=== PATIENT | male | born 1955 | race Caucasian/White ===

== ENCOUNTER 2020-09-12 22:47 | Inpatient (IN) | payer MEDICARE, OTHER ==
[~2020-09-12] VITALS: Ht 177.8 cm; Wt 81.6 kg
[2020-09-12] MEDS: IV NORMAL SALINE 500 ML BAG IV ONE ×2 (00:55→23:55)
--- NOTE | 2020-09-12 22:50 | NUR ---
at bedside for MSE. RN at bedside for EKG
[2020-09-12] MEDS ORDERED: NITROGLYCERIN 0.4 MG/TAB BOTTLE SL ONE ×2 (23:00→23:07)
[2020-09-12] MEDS ORDERED: NITROGLYCERIN OINT 1 GM PACKET TP ONE ×2 (23:00→23:07)
[2020-09-12] MEDS ORDERED: ASPIRIN 81 MG TAB.CHEW PO ONE (23:00)
[2020-09-12] MEDS ORDERED: ASPIRIN 81 MG TAB.CHEW ONE (23:07)
[2020-09-12 23:15] LABS: BASOPHILS # (AUTO) 0.1 K/uL (0.0-8.0); BASOPHILS % (AUTO) 0.7 % (0.0-2.0); EOSINOPHILS # (AUTO) 0.4 K/uL (0.0-0.7); EOSINOPHILS % (AUTO) 4.4 % (0.0-7.0); HEMATOCRIT 45.1 % (36.7-47.1); HEMOGLOBIN 15.3 g/dL (12.5-16.3); LYMPHOCYTES # (AUTO) 2.8 K/uL (20.0-40.0); LYMPHOCYTES % (AUTO) 28.3 % (20.5-51.5); MEAN CORPUSCULAR HEMOGLOBIN 30.4 uug (23.8-33.4); MEAN CORPUSCULAR HGB CONC 34 g/dL (32.5-36.3); MEAN CORPUSCULAR VOLUME 89.9 fL (73.0-96.2); MONOCYTES # (AUTO) 0.7 K/uL (2.0-10.0); MONOCYTES % (AUTO) 7.1 % (0.0-11.0); NEUTROPHILS # (AUTO) 5.8 K/uL (1.8-8.9); NEUTROPHILS % (AUTO) 59.5 % (38.5-71.5); PLATELET COUNT (AUTO) 226 K/uL (152-348); RED BLOOD CELL COUNT(AUTO) 5.02 MIL/uL (4.06-5.63); WHITE BLOOD COUNT (AUTO) 9.7 K/uL (3.6-10.2)
[2020-09-12 23:26] LABS: BILIRUBIN,DIRECT 0.1 mg/dL (0.0-0.2); BILIRUBIN,TOTAL 0.4 mg/dL (0.2-1.0); CREATININE 1.4 mg/dL (0.6-1.3); POTASSIUM 3.8 mmol/L (3.5-5.1); TOTAL PROTEIN, SERUM 7.9 g/dL (6.4-8.2)
[2020-09-12] MEDS ORDERED: SEMA0.25 SQ (23:27)
[2020-09-12] MEDS ORDERED: LISI40TA13 PO (23:27)
[2020-09-12] MEDS ORDERED: SITA100T PO (23:27)
[2020-09-12] MEDS ORDERED: METF-886 PO (23:27)
[2020-09-12] MEDS ORDERED: ALLO300T2 PO (23:27)
[2020-09-12] MEDS ORDERED: ATOR20TA PO (23:27)
--- NOTE | 2020-09-12 23:27 | NUR ---
Pt unable to recall some medications, states takes 2 insulin pens, and insulin sliding scale, but unable to remember name. Also takes 8 pill type medications, unable to remember depression medication. Needs follow up.
[2020-09-12] MEDS ORDERED: MORPHINE SULFATE 4 MG/1 ML DISP.SYRIN IV ONE (23:30)
[2020-09-12] MEDS ORDERED: ONDANSETRON 4 MG/2 ML VIAL IV ONE (23:30)
[2020-09-12] MEDS ORDERED: MORPHINE SULFATE 4 MG/1 ML DISP.SYRIN ONE (23:38)
[2020-09-12] MEDS ORDERED: MORPHINE SULFATE 2 MG/1 ML DISP.SYRIN ONE (23:39)
[2020-09-12] MEDS ORDERED: ONDANSETRON 4 MG/2 ML VIAL ONE (23:39)
[2020-09-12] MEDS ORDERED: IOHEXOL 350 100 ML INFUS..BTL ONE (23:57)
[2020-09-12] MEDS ORDERED: SWABABLE VALVE TRANSFER SET EA MC ONE (23:57)
[2020-09-12] MEDS ORDERED: IV NORMAL SALINE 250 ML IV ONE (23:58)
[2020-09-13] MEDS ORDERED: INSULIN REGULAR, HUMAN 300 UNIT/3 ML VIAL IV ONE
--- NOTE | 2020-09-13 00:10 | NUR ---
Patient placed on O2 2LPM, noted with desaturation to 90-91% when talking or during exertion. O2 sat: 96-98% with 2LPM of O2 via NC.
[2020-09-13] MEDS ORDERED: POTASSIUM CHLORIDE 20 MEQ TAB.PRT.SR ONE (00:13)
[2020-09-13] MEDS ORDERED: INSULIN REGULAR, HUMAN 300 UNIT/3 ML VIAL ONE (00:14)
[2020-09-13] MEDS ORDERED: POTASSIUM CHLORIDE 20 MEQ TAB.PRT.SR PO ONE (00:15)
--- NOTE | 2020-09-13 00:30 | NUR ---
Patient went down to CT in stable condition.
--- NOTE | 2020-09-13 00:45 | NUR ---
Pt back from CT, VS rechecked, normal as recorded, kept on O2.
--- NOTE | 2020-09-13 01:00 | NUR ---
Received patient in shift report
[2020-09-13] MEDS ORDERED: CEFTRIAXONE 1 G in IV DEXTROSE 5% 50 ML IV ONE (02:15)
[2020-09-13] MEDS ORDERED: MORPHINE SULFATE 4 MG/1 ML DISP.SYRIN IV ONE (02:15)
[2020-09-13] MEDS ORDERED: FLUCONAZOLE 100 MG TABLET PO ONE (02:15)
[2020-09-13] MEDS ORDERED: MORPHINE SULFATE 2 MG/1 ML DISP.SYRIN ONE (02:15)
[2020-09-13] MEDS ORDERED: CEFTRIAXONE /D5W 50ML IVPB **ER PYXIS IV ONE (02:15)
[2020-09-13] MEDS ORDERED: FLUCONAZOLE 100 MG TABLET ONE (02:39)
--- NOTE | 2020-09-13 02:49 | NUR ---
Report given to to Yina HERNANDEZ
[2020-09-13] MEDS ORDERED: ACETAMINOPHEN 325 MG TABLET PO PRN (03:30)
[2020-09-13] MEDS ORDERED: ONDANSETRON 4 MG/2 ML VIAL IV PRN (03:30)
[2020-09-13] MEDS ORDERED: HYDROCODONE/APAP 5-325MG TABLET PO PRN (03:30)
[2020-09-13] MEDS ORDERED: Z GUARD REMEDY PASTE 57 GM TUBE TOP PRN (03:30)
[2020-09-13] MEDS ORDERED: MAGNESIUM HYDROXIDE 30 ML LIQUID UDC PO PRN (03:30)
--- NOTE | 2020-09-13 04:00 | NUR ---
Pt. admitted to Tele , under care of Dr. Castro, room 314 Belongs List completed and all belongings sent
[2020-09-13 05:01] VITALS: BP 106/55
--- NOTE | 2020-09-13 06:14 | NUR ---
Admitted patient to room 314; SR on tele; VSS; denies any pain; admission procedure done; needs attended; plan of care initiated;
[2020-09-13 07:04] LABS: BASOPHILS # (AUTO) 0.1 K/uL (0.0-8.0); BASOPHILS % (AUTO) 0.6 % (0.0-2.0); EOSINOPHILS # (AUTO) 0.5 K/uL (0.0-0.7); EOSINOPHILS % (AUTO) 4.8 % (0.0-7.0); HEMATOCRIT 43.9 % (36.7-47.1); HEMOGLOBIN 14.6 g/dL (12.5-16.3); LYMPHOCYTES # (AUTO) 2.9 K/uL (20.0-40.0); LYMPHOCYTES % (AUTO) 28.8 % (20.5-51.5); MEAN CORPUSCULAR HEMOGLOBIN 30.1 uug (23.8-33.4); MEAN CORPUSCULAR HGB CONC 33 g/dL (32.5-36.3); MEAN CORPUSCULAR VOLUME 90.4 fL (73.0-96.2); MONOCYTES # (AUTO) 0.9 K/uL (2.0-10.0); NEUTROPHILS # (AUTO) 5.8 K/uL (1.8-8.9); NEUTROPHILS % (AUTO) 56.8 % (38.5-71.5); PLATELET COUNT (AUTO) 213 K/uL (152-348); RED BLOOD CELL COUNT(AUTO) 4.85 MIL/uL (4.06-5.63); WHITE BLOOD COUNT (AUTO) 10.1 K/uL (3.6-10.2)
--- NOTE | 2020-09-13 07:40 | NUR ---
Received in bed awake, alert and conversant. No respiratory distress. Denies chest pain or sob. On 2Lpm via nc spo2 98%. Kept comfortable. Safety measures maintainted. Will continue to monitor.
[2020-09-13 07:42] LABS: *BILIRUBIN,URIN NEGATIVE (NEGATIVE); *BLOOD, URINE NEGATIVE (NEGATIVE); *CLARITY,URINE CLEAR (CLEAR); *COLOR,URINE YELLOW (YELLOW); *KETONES,URINE NEGATIVE (NEGATIVE); *UROBILINOGEN,URINE 0.2 E.U./dl (NORMAL); LEUKOCYTE ESTERASE ,URINE NEGATIVE (NEGATIVE); NITRITE, URINE NEGATIVE (NEGATIVE); UGLUCOSE NEGATIVE (NEGATIVE)
[2020-09-13 08:00] VITALS: BP 110/59
[2020-09-13] MEDS ORDERED: METFORMIN XR 500 MG TAB.SR.24H PO SCH (08:00)
[2020-09-13 08:36] LABS: MAGNESIUM 1.9 mg/dL (1.8-2.4); PHOSPHOROUS 4.7 mg/dL (2.5-4.9); POTASSIUM 4.3 mmol/L (3.5-5.1)
[2020-09-13] MEDS ORDERED: LISINOPRIL 20 MG TABLET PO SCH (09:00)
[2020-09-13] MEDS ORDERED: ALLOPURINOL 300 MG TABLET PO SCH (09:00)
[2020-09-13] MEDS ORDERED: LINAGLIPTIN 5 MG TABLET PO SCH (09:00)
--- NOTE | 2020-09-13 09:00 | NUR ---
C/o of mild headache. Prn Tylenol given as ordered at 820am. Patient verbalized relief.
--- NOTE | 2020-09-13 11:05 | NUR ---
patient refused troponin lab draw said he said they ben so many times already last night. will continue to monitor and encourage. charge nurse aware.
[2020-09-13] MEDS ORDERED: DEXTROSE 50% 50 ML DISP.SYRIN IV PRN (11:45)
[2020-09-13] MEDS ORDERED: BLOOD SUGAR DIAGNOSTIC 1 EACH STRIP VI SCH (11:45)
[2020-09-13] MEDS ORDERED: INSULIN REGULAR, HUMAN 300 UNIT/3 ML VIAL SQ PRN (11:45)
[2020-09-13 11:49] VITALS: BP 128/77
[2020-09-13] MEDS ORDERED: SUCRALFATE 1 G TABLET PO SCH (13:15)
--- NOTE | 2020-09-13 13:16 | NUR ---
Seen and examined by Dr. Vargas with order for carafate1 gm po achs noted and carried out. Patient is aware.
[2020-09-13] MEDS ORDERED: SUCR1TAB31 PO (13:34)
[2020-09-13] MEDS ORDERED: ESOM40CA PO (13:34)
--- NOTE | 2020-09-13 15:12 | NUR ---
Patient is discharged to home. Alert and oriented x4, anxious to go home. In no acute distress. Due meds given and tolerated. No nausea or vomiting. Denies sob or chest pain. Belongings inventoried and confirmed he has all of it. Education given on new medications. He verbalized understanding. Seen by Dr. Vargas today and answered all his questions. Removed Iv no bleeding noted. Patient is stable and arranged for his own uber with a friend. Brought downstairs via wheelchair. MD is aware.
[2020-09-13] MEDS ORDERED: ATORVASTATIN 20 MG TABLET PO SCH (18:00)
== END 2020-09-13 15:05 | disposition home or self-care (01) | DRG 391 ==
LOC: ER 22:49 → TELE3 09-13 03:42
PROVIDERS: ADMIT Internal Medicine; ATTEND Internal Medicine
DX: K20.90 Esophagitis, unspecified without bleeding (principal); N17.0 Acute kidney failure with tubular necrosis; E03.9 Hypothyroidism, unspecified; E78.5 Hyperlipidemia, unspecified; G89.29 Other chronic pain; I25.10 Atherosclerotic heart disease of native coronary artery without angina pectoris; R29.6 Repeated falls; Z20.822 Contact with and (suspected) exposure to COVID-19; Z86.73 Personal history of transient ischemic attack (TIA), and cerebral infarction without residual deficits; J44.9 Chronic obstructive pulmonary disease, unspecified; E11.51 Type 2 diabetes mellitus with diabetic peripheral angiopathy without gangrene; F17.210 Nicotine dependence, cigarettes, uncomplicated; M19.90 Unspecified osteoarthritis, unspecified site; B35.3 Tinea pedis; F32.9 Major depressive disorder, single episode, unspecified; F41.9 Anxiety disorder, unspecified; Z71.6 Tobacco abuse counseling; E11.42 Type 2 diabetes mellitus with diabetic polyneuropathy; Z85.51 Personal history of malignant neoplasm of bladder; I11.9 Hypertensive heart disease without heart failure; R93.1 Abnormal findings on diagnostic imaging of heart and coronary circulation; R94.31 Abnormal electrocardiogram [ECG] [EKG]; Z79.84 Long term (current) use of oral hypoglycemic drugs
CPT/HCPCS: 36415; 70030-TC; 71045; 71275; 83735; 84100; 84153; 84443; 85025; 85730; 93005; 93307; G0378; J0696; J1815; J2270; J2405; J7050; Q9967

== ENCOUNTER 2021-12-05 14:39 | Emergency (ER) | payer MEDICARE, OTHER ==
[~2021-12-05] VITALS: Ht 180.3 cm; Wt 81.6 kg
[~2021-12-05 14:39] MED LIST: ALLO300T2 PO; ATOR20TA PO; ESOM40CA PO; LISI40TA13 PO; METF-886 PO; SEMA0.25 SQ; SITA100T PO; SUCR1TAB31 PO
--- NOTE | 2021-12-05 14:39 | NUR ---
Per [facility] paramedics, "This is a known abrasive person c/o throat discomfort, abdominal pains with shortness of breath." Patient is AOx4, intermittently mute when triage/dry charge process attendant Andrei is asking questions regarding his emergency health needs, his respiration is easy but mildly tachypneac, skin is warm and dry.
--- NOTE | 2021-12-05 15:02 | NUR ---
Patient is resting comfortably on gurney while using his personal electronic device, still c/o chronic throat discomfort, upper abdominal bloating with shortness of breath, hx of chronic esophagitis, Parkinson's, still currently using 1 pack cigarrette, COPD, HTN, DM, PAD, CAD, CHF, cervical spinal issues s/p 2 surgeries, bladder cancer s/p laser surgery, osteoarthritis, gout, vasomotor nephropathy, ANXIETY, depression, CVA/TIA with balance issues, uses cane to ambulate, and chronic pains
[2021-12-05] MEDS ORDERED: SERT-440 PO (15:14)
[2021-12-05] MEDS ORDERED: POLY17PO4 PO (15:14)
[2021-12-05] MEDS ORDERED: INSU100V7 SQ (15:14)
[2021-12-05] MEDS ORDERED: CARB1TAB21 PO (15:14)
[2021-12-05] MEDS ORDERED: LISI10TA29 PO (15:14)
[2021-12-05] MEDS ORDERED: ROSU40TA PO (15:14)
[2021-12-05] MEDS ORDERED: OMEP40CA21 PO (15:14)
[2021-12-05] MEDS ORDERED: ERGO500040 PO (15:14)
[2021-12-05] MEDS ORDERED: APIX5TAB4 PO (15:14)
[2021-12-05] MEDS ORDERED: METO-356 PO (15:14)
[2021-12-05] MEDS ORDERED: LORA-259 PO (15:14)
[2021-12-05 15:25] LABS: HEMATOCRIT 34.1 % (36.7-47.1); MEAN CORPUSCULAR VOLUME 86.8 fL (73.0-96.2); PLATELET COUNT (AUTO) 255 K/uL (152-348)
[2021-12-05 15:34] LABS: ETHANOL < 3 MG/DL (0-0)
--- NOTE | 2021-12-05 15:36 | NUR ---
NPO observed 2/2 patient's active complaints of throat discomfort and difficulty swallowing. Comfort and safety measures maintained.
[2021-12-05] MEDS ORDERED: ALBUTEROL SULFATE 2.5 MG/3 ML NEBU ONE (15:51)
[2021-12-05 15:59] LABS: CARBON DIOXIDE 25 mmol/L (21-32); CHLORIDE 105 mmol/L (98-107); CREATININE 0.9 mg/dL (0.6-1.3); GLUCOSE 92 mg/dL (74-106); POTASSIUM 3.9 mmol/L (3.5-5.1); UREA NITROGEN, BLOOD 11 mg/dL (7-18)
[2021-12-05] MEDS ORDERED: ALBUTEROL SULFATE 2.5 MG/3 ML NEBU NEB ONE (16:00)
[2021-12-05 16:08] LABS: ALANINE AMINOTRANSFERASE 12 U/L (16-63); ALKALINE PHOSPHATASE 104 U/L (50-136); ASPARTATE AMINOTRANSFERASE 15 U/L (15-37); BILIRUBIN,DIRECT 0.2 mg/dL (0.0-0.2); BILIRUBIN,TOTAL 0.6 mg/dL (0.2-1.0); CREATINE KINASE, TOTAL 64 U/L (39-308); TOTAL PROTEIN, SERUM 7.2 g/dL (6.4-8.2)
[2021-12-05 16:09] LABS: ACETAMINOPHEN < 10.0 ug/mL (10-30)
[2021-12-05] MEDS ORDERED: diphenhydrAMINE 50 MG/1 ML VIAL IV ONE (16:15)
[2021-12-05] MEDS ORDERED: HALOPERIDOL LACTATE 5 MG/1 ML VIAL IV ONE (16:15)
[2021-12-05] MEDS ORDERED: FUROSEMIDE 40 MG/4 ML VIAL IV ONE (16:15)
[2021-12-05] MEDS ORDERED: FUROSEMIDE 40 MG/4 ML VIAL ONE (16:18)
[2021-12-05] MEDS ORDERED: diphenhydrAMINE 50 MG/1 ML VIAL ONE (16:18)
[2021-12-05] MEDS ORDERED: HALOPERIDOL LACTATE 5 MG/1 ML VIAL ONE (16:18)
[2021-12-05 16:26] LABS: *BILIRUBIN,URIN NEGATIVE (NEGATIVE); *BLOOD, URINE NEGATIVE (NEGATIVE); *CLARITY,URINE CLEAR (CLEAR); *COLOR,URINE YELLOW (YELLOW); *KETONES,URINE NEGATIVE (NEGATIVE); *UROBILINOGEN,URINE 0.2 E.U./dl (NORMAL); LEUKOCYTE ESTERASE ,URINE NEGATIVE (NEGATIVE); NITRITE, URINE NEGATIVE (NEGATIVE); PH,URINE 5.5 (5.0-8.0); UGLUCOSE NEGATIVE (NEGATIVE)
[2021-12-05] MEDS ORDERED: LORAZEPAM 1 MG TABLET PO PRN (16:30)
[2021-12-05] MEDS ORDERED: INSULIN REGULAR, HUMAN 300 UNIT/3 ML VIAL SQ PRN (16:30)
[2021-12-05] MEDS ORDERED: INSULIN REGULAR, HUMAN 300 UNITS/3 ML VIAL SQ PRN (16:30)
[2021-12-05] MEDS ORDERED: ONDANSETRON 4 MG/2 ML VIAL IV PRN (16:30)
[2021-12-05] MEDS ORDERED: ACETAMINOPHEN 325 MG TABLET PO PRN (16:30)
[2021-12-05] MEDS ORDERED: BLOOD SUGAR DIAGNOSTIC 1 EACH STRIP VI SCH (16:30)
[2021-12-05] MEDS ORDERED: DEXTROSE 50% 50 ML DISP.SYRIN IV PRN (16:30)
--- NOTE | 2021-12-05 16:35 | NUR ---
Patient was frequently reminded not to scream and that he is not the only patient in ER room 2. Patient was heard saying "I want to go to [facility]." is aware.
[2021-12-05 16:44] LABS: *AMPHETAMINE, URINE NEGATIVE (NEGATIVE); *CANNABINOID, URINE NEGATIVE (NEGATIVE); *COCCAINE, URINE NEGATIVE (NEGATIVE); *OPIATE, URINE NEGATIVE (NEGATIVE); *PHENCYCLIDINE SCREEN,URINE NEGATIVE (NEGATIVE)
[2021-12-05] MEDS ORDERED: Medication Not On Formulary EA (Apixaban (Eliquis) 5 MG) PO SCH (17:00)
[2021-12-05] MEDS ORDERED: METOPROLOL SUCCINATE XL 25 MG TAB.SR.24H PO SCH (17:00)
[2021-12-05] MEDS ORDERED: CARBIDOPA/LEVODOPA 25-100MG TABLET PO SCH (17:00)
[2021-12-05] MEDS ORDERED: APIXABAN 5 MG TABLET PO ONE (18:00)
[2021-12-05] MEDS ORDERED: CEFTRIAXONE 1 G in IV DEXTROSE 5% 50 ML IV SCH (18:15)
[2021-12-05] MEDS ORDERED: FLUTICASONE/VILANTEROL 1 EACH BLST.W.DEV INH SCH (18:15)
[2021-12-05] MEDS ORDERED: ALBUTEROL SULFATE 2.5 MG/3 ML NEBU NEB PRN (18:15)
[2021-12-05] MEDS ORDERED: AZITHROMYCIN IV 500 MG in IV DEXTROSE 5% 250 ML IV SCH (18:15)
[2021-12-05 18:42] LABS: FERRITIN 97 ng/mL (26-388); LACTATE DEHYDROGENASE 186 U/L (85-227)
--- NOTE | 2021-12-05 18:56 | NUR ---
Patient is resting comfortably on gurney with eyes closed, laying on his right side, respiration:easy, urinal at bedside. Patient said that he feels better and wants to sleep and rest more.
--- NOTE | 2021-12-05 19:21 | NUR ---
Nursing SBAR given to 7pm nurse Armendariz. Patient verbally refused admission earlier but may consent now. Patient is now waiting for an available telemetry bed and nurse.
[2021-12-05] MEDS ORDERED: INSULIN GLARGINE,HUM 300 UNITS/3 ML CARTRIDGE SQ SCH (21:00)
[2021-12-05] MEDS ORDERED: FUROSEMIDE 40 MG/4 ML VIAL IV SCH (21:00)
[2021-12-05] MEDS ORDERED: ATORVASTATIN 40 MG TABLET PO SCH (21:00)
--- NOTE | 2021-12-05 21:09 | NUR ---
Patient does not wish to proceed with medical care recommended by Dr. Chinchilla. Patient given information related to possible complications, up to and including , which could occur as a result of leaving the hospital at this time. Patient verbalizes understanding of risks involved due to leaving against medical advice. Patient has signed AMA form.
[2021-12-05 21:11] VITALS: BP 130/80
[2021-12-06] MEDS ORDERED: PANTOPRAZOLE SODIUM 40 MG TABLET.DR PO SCH (07:00)
[2021-12-06] MEDS ORDERED: SERTRALINE HCL 100 MG TABLET PO SCH (09:00)
[2021-12-06] MEDS ORDERED: MIRALAX 17 GM POWD.PACK PO SCH (09:00)
[2021-12-06] MEDS ORDERED: METFORMIN XR 500 MG TAB.SR.24H PO SCH (09:00)
[2021-12-06] MEDS ORDERED: Medication Not On Formulary EA (Omeprazole 1 CAP) PO SCH (09:00)
[2021-12-06] MEDS ORDERED: ALLOPURINOL 300 MG TABLET PO SCH (09:00)
[2021-12-06] MEDS ORDERED: LISINOPRIL 10 MG TABLET PO SCH (09:00)
[2021-12-06] MEDS ORDERED: Medication Not On Formulary EA (Rosuvastatin Calcium (Crestor) 1 TAB) PO SCH (09:00)
== END 2021-12-05 21:11 | disposition left against medical advice (07) ==
LOC: ER 17:34
DX: I11.0 Hypertensive heart disease with heart failure (principal); I50.9 Heart failure, unspecified; J96.01 Acute respiratory failure with hypoxia; G20 Parkinson's disease; I43 Cardiomyopathy in diseases classified elsewhere; D64.9 Anemia, unspecified; R79.1 Abnormal coagulation profile; Z20.822 Contact with and (suspected) exposure to COVID-19; Z53.29 Procedure and treatment not carried out because of patient's decision for other reasons; Z79.899 Other long term (current) drug therapy; F17.200 Nicotine dependence, unspecified, uncomplicated; Z79.4 Long term (current) use of insulin; Z79.84 Long term (current) use of oral hypoglycemic drugs; J44.9 Chronic obstructive pulmonary disease, unspecified; E11.42 Type 2 diabetes mellitus with diabetic polyneuropathy; E78.5 Hyperlipidemia, unspecified; Z85.51 Personal history of malignant neoplasm of bladder; I25.10 Atherosclerotic heart disease of native coronary artery without angina pectoris; F32.A Depression, unspecified
CPT/HCPCS: 36415; 71045; 80048; 80076; 80299; 80307; 80320; 81003; 82550; 82728; 83605; 83615; 83880; 84145; 84484; 85025; 85379; 87040 ×2; 87086; 87426; 93005; 94640; 96374; 96375; 99291; J1200; J1630; J1940; A4663; G0480

== ENCOUNTER 2022-08-26 20:36 | Emergency (ER) | payer MEDICARE, OTHER ==
[~2022-08-26] VITALS: Ht 180.3 cm; Wt 78.0 kg
[~2022-08-26 20:36] MED LIST changes: +APIX5TAB4 PO; -ATOR20TA PO; +CARB1TAB21 PO; +ERGO500040 PO; -ESOM40CA PO; +INSU100V7 SQ; +LISI10TA29 PO; -LISI40TA13 PO; +LORA-259 PO; +METO-356 PO; +OMEP40CA21 PO; +POLY17PO4 PO; +ROSU40TA PO; +SERT-440 PO; -SUCR1TAB31 PO
[2022-08-26 21:21] LABS: HEMATOCRIT 36.6 % (36.7-47.1); MEAN CORPUSCULAR HEMOGLOBIN 28.4 uug (23.8-33.4); PLATELET COUNT (AUTO) 191 K/uL (152-348)
[2022-08-26 22:06] LABS: BILIRUBIN,TOTAL 0.3 mg/dL (0.2-1.0); CREATININE 0.9 mg/dL (0.6-1.3); TOTAL PROTEIN, SERUM 7.8 g/dL (6.4-8.2)
[2022-08-27] MEDS ORDERED: ASPIRIN 325 MG TABLET PO ONE (00:30)
--- NOTE | 2022-08-27 01:30 | NUR ---
Patient discharged in stable condition with police officers. NAD noted. A/o x3. Ambulatory with a steady gait. Written and verbal after care instructions given. Patient verbalizes understanding of instructions. Stressed follow up or return to ER for worsening s/s.
[2022-08-27 01:55] VITALS: BP 106/53
== END 2022-08-27 01:40 ==
LOC: ER 20:36
DX: R07.9 Chest pain, unspecified (principal); G20 Parkinson's disease; E11.9 Type 2 diabetes mellitus without complications; Z85.118 Personal history of other malignant neoplasm of bronchus and lung; R13.10 Dysphagia, unspecified; I25.10 Atherosclerotic heart disease of native coronary artery without angina pectoris; I11.0 Hypertensive heart disease with heart failure; I50.9 Heart failure, unspecified; J44.9 Chronic obstructive pulmonary disease, unspecified; Z79.4 Long term (current) use of insulin; Z79.899 Other long term (current) drug therapy
CPT/HCPCS: 36415; 71045; 84484; 85025; 93005; A4663

== ENCOUNTER 2023-10-07 02:52 | Inpatient (IN) | payer MEDICARE, OTHER ==
[2023-10-07] VITALS (11 sets, daily range): BP systolic 122–177; BP diastolic 50–99; TEMP 97.8–99.4; O2SAT 93–98
[~2023-10-07] VITALS: Ht 172.7 cm; Wt 77.6 kg
[2023-10-07] MEDS: ALBUTEROL SULFATE 2.5 MG/3 ML NEBU NEB ONE (03:40)
[2023-10-07] MEDS: IPRATROPIUM BROMIDE 0.5 MG/2.5 ML NEBU NEB ONE (03:40)
[2023-10-07 03:41] LABS: BASOPHILS % (AUTO) 0.6 % (0.0-2.0); EOSINOPHILS # (AUTO) 0.1 K/uL (0.0-0.7); EOSINOPHILS % (AUTO) 1.9 % (0.0-7.0); HEMATOCRIT 32.9 % (36.7-47.1); HEMOGLOBIN 11.1 g/dL (12.5-16.3); LYMPHOCYTES # (AUTO) 0.8 K/uL (0.8-4.8); LYMPHOCYTES % (AUTO) 14.9 % (20.5-51.5); MEAN CORPUSCULAR HEMOGLOBIN 28.4 uug (23.8-33.4); MEAN CORPUSCULAR HGB CONC 34 g/dL (32.5-36.3); MEAN CORPUSCULAR VOLUME 84.1 fL (73.0-96.2); MONOCYTES # (AUTO) 0.5 K/uL (0.1-1.30); MONOCYTES % (AUTO) 8.9 % (0.0-11.0); NEUTROPHILS # (AUTO) 4.2 K/uL (1.8-8.9); NEUTROPHILS % (AUTO) 73.7 % (38.5-71.5); PLATELET COUNT (AUTO) 165 K/uL (152-348); RED BLOOD CELL COUNT(AUTO) 3.91 MIL/uL (4.06-5.63); RED CELL DISTRIBUTION WIDTH 15.6 % (12.1-16.2); WHITE BLOOD COUNT (AUTO) 5.7 K/uL (3.6-10.2)
[2023-10-07] MEDS ORDERED: ALBUTEROL SULFATE 2.5 MG/3 ML NEBU ONE (03:44)
[2023-10-07] MEDS ORDERED: IPRATROPIUM BROMIDE 0.5 MG/2.5 ML NEBU ONE (03:44)
[2023-10-07 04:02] LABS: DIFFERENTIAL COMMENT 1
[2023-10-07 04:07] LABS: CALCIUM 8.8 mg/dL (8.5-10.1); CARBON DIOXIDE 25 mmol/L (21-32); CHLORIDE 105 mmol/L (98-107); CREATININE 1.1 mg/dL (0.6-1.3); GLUCOSE 197 mg/dL (74-106); POTASSIUM 3.9 mmol/L (3.5-5.1); SODIUM SERUM 141 mmol/L (136-145); UREA NITROGEN, BLOOD 12 mg/dL (7-18)
[2023-10-07 04:18] LABS: LACTIC ACID 2.6 mmol/L (0.4-2.0)
[2023-10-07 04:19] LABS: ALANINE AMINOTRANSFERASE 12 U/L (16-63); ALBUMIN 3.2 g/dL (3.4-5.0); ALKALINE PHOSPHATASE 108 U/L (50-136); ASPARTATE AMINOTRANSFERASE 8 U/L (15-37); BILIRUBIN,DIRECT 0.1 mg/dL (0.0-0.2); BILIRUBIN,TOTAL 0.6 mg/dL (0.2-1.0); NT-PRO BNP 951 pg/mL (0-125); TOTAL PROTEIN, SERUM 7.3 g/dL (6.4-8.2)
[2023-10-07] MEDS ORDERED: CEFTRIAXONE /D5W 50ML IVPB **ER PYXIS IV ONE (05:00)
[2023-10-07] MEDS ORDERED: AZITHROMYCIN 500MG/ D5W 250ML IVPB **ER PYXIS ONLY IV ONE (05:00)
[2023-10-07] MEDS ORDERED: METF-442 PO (05:01)
[2023-10-07] MEDS: CEFTRIAXONE 1 G in IV DEXTROSE 5% 50 ML IV ONE (05:10)
[2023-10-07] MEDS: AZITHROMYCIN IV 500 MG in IV DEXTROSE 5% 250 ML IV SCH (05:15)
[2023-10-07] MEDS ORDERED: ONDANSETRON 4 MG/2 ML VIAL IV PRN (05:15)
[2023-10-07] MEDS ORDERED: REMEDY ESSENTIAL ZINC PASTE 113 GM TP PRN (05:15)
[2023-10-07] MEDS: CEFTRIAXONE 1 G in IV DEXTROSE 5% 50 ML IV SCH (05:15)
[2023-10-07] MEDS ORDERED: MAGNESIUM HYDROXIDE 30 ML LIQUID UDC PO PRN (05:15)
[2023-10-07] MEDS ORDERED: DEXTROSE 50% 50 ML DISP.SYRIN IV PRN ×2 (05:15→10:30)
[2023-10-07] MEDS: AZITHROMYCIN IV 500 MG in IV DEXTROSE 5% 250 ML IV ONE (05:45)
[2023-10-07] MEDS: BLOOD SUGAR DIAGNOSTIC 1 EACH STRIP VI SCH (08:30)
[2023-10-07] MEDS: PANTOPRAZOLE SODIUM 40 MG TABLET.DR PO SCH (08:32)
[2023-10-07] MEDS: INSULIN REGULAR, HUMAN 300 UNIT/3 ML VIAL SQ PRN (08:32)
[2023-10-07] MEDS ORDERED: ERGOCALCIFEROL 50,000 UNIT CAPSULE PO SCH (10:00)
[2023-10-07] MEDS ORDERED: IPRATROPIUM BROMIDE 0.5 MG/2.5 ML NEBU NEB PRN (10:30)
[2023-10-07] MEDS ORDERED: INSULIN REGULAR, HUMAN 300 UNIT/3 ML VIAL SQ PRN (10:30)
[2023-10-07] MEDS: ACETAMINOPHEN 325 MG TABLET PO PRN (10:31)
[2023-10-07] MEDS: CLONIDINE HCL 0.1 MG TABLET PO ONE ×2 (10:31→21:13)
[2023-10-07] MEDS: methylPREDNISolone SOD SUCC 125 MG/2 ML VIAL IV SCH (11:14)
[2023-10-07] MEDS ORDERED: BLOOD SUGAR DIAGNOSTIC 1 EACH STRIP VI SCH (11:30)
[2023-10-07] MEDS: LORAZEPAM 0.5 MG TABLET PO PRN (12:34)
[2023-10-07] MEDS: IPRATROPIUM BROMIDE 0.5 MG/2.5 ML NEBU NEB SCH (14:02)
[2023-10-07] MEDS: ALBUTEROL SULFATE 1.25 MG/3 ML NEBU NEB SCH (14:02)
[2023-10-07] MEDS: FLUTICASONE PROP NASAL SPRAY 16 GM BOTTLE NS SCH (14:09)
[2023-10-07] MEDS: CARBIDOPA/LEVODOPA 25-100MG TABLET PO SCH (14:09)
[2023-10-07] MEDS ORDERED: TAMS-3 PO (14:52)
[2023-10-07] MEDS ORDERED: FURO40TA5 PO (14:53)
[2023-10-07] MEDS ORDERED: METF-886 PO (14:54)
[2023-10-07] MEDS ORDERED: CLOP75TA33 PO (14:56)
[2023-10-07] MEDS ORDERED: ASPI81TA31 PO (14:57)
[2023-10-07] MEDS ORDERED: LINA145C PO (14:58)
[2023-10-07] MEDS ORDERED: SENN8.6T19 PO (14:59)
[2023-10-07] MEDS ORDERED: TRAZ150T75 PO (15:00)
[2023-10-07] MEDS ORDERED: ROSU20TA2 PO (15:01)
[2023-10-07] MEDS ORDERED: LIPA1CAP15 PO (15:02)
[2023-10-07] MEDS ORDERED: ALLO100T PO (15:36)
[2023-10-07] MEDS ORDERED: Medication Not On Formulary EA (Lipase/Protease/Amylase (Creon Dr 36,000 Units Capsule) PO SCH (17:00)
[2023-10-07] MEDS ORDERED: METOPROLOL SUCCINATE XL 25 MG TAB.SR.24H PO SCH (17:00)
[2023-10-07] MEDS: SENNOSIDES 1 TABLET PO SCH (17:36)
[2023-10-07] MEDS: METOPROLOL SUCCINATE XL 25 MG TAB.SR.24H PO SCH (17:37)
[2023-10-07] MEDS ORDERED: Medication Not On Formulary EA (Rosuvastatin Calcium (Crestor) 20 MG) PO SCH (21:00)
[2023-10-07] MEDS: ATORVASTATIN 40 MG TABLET PO SCH (21:13)
[2023-10-07] MEDS: TAMSULOSIN HCL 0.4 MG CAP.SR.24H PO SCH (21:13)
[2023-10-07] MEDS: TRAZODONE 50 MG TABLET PO SCH (21:13)
[2023-10-07] MEDS: INSULIN GLARGINE,HUM 300 UNITS/3 ML CARTRIDGE SQ SCH (21:40)
[2023-10-08] VITALS (13 sets, daily range): BP systolic 114–148; BP diastolic 47–79; TEMP 96–98.7; O2SAT 95–98
[2023-10-08 06:29] LABS: BASOPHILS % (AUTO) 0.2 % (0.0-2.0); HEMATOCRIT 33.3 % (36.7-47.1); HEMOGLOBIN 11.3 g/dL (12.5-16.3); LYMPHOCYTES # (AUTO) 0.8 K/uL (0.8-4.8); LYMPHOCYTES % (AUTO) 11.5 % (20.5-51.5); MEAN CORPUSCULAR HEMOGLOBIN 28.3 uug (23.8-33.4); MEAN CORPUSCULAR HGB CONC 34 g/dL (32.5-36.3); MEAN CORPUSCULAR VOLUME 83.5 fL (73.0-96.2); MONOCYTES # (AUTO) 0.4 K/uL (0.1-1.30); MONOCYTES % (AUTO) 6.6 % (0.0-11.0); NEUTROPHILS # (AUTO) 5.3 K/uL (1.8-8.9); NEUTROPHILS % (AUTO) 81.7 % (38.5-71.5); PLATELET COUNT (AUTO) 195 K/uL (152-348); RED CELL DISTRIBUTION WIDTH 15.8 % (12.1-16.2); WHITE BLOOD COUNT (AUTO) 6.5 K/uL (3.6-10.2)
[2023-10-08 06:36] LABS: DIFFERENTIAL COMMENT 1
[2023-10-08 06:59] LABS: CALCIUM 9.2 mg/dL (8.5-10.1); CREATININE 0.8 mg/dL (0.6-1.3); MAGNESIUM 1.8 mg/dL (1.8-2.4)
[2023-10-08] MEDS: CEFTRIAXONE 1 G in IV DEXTROSE 5% 50 ML IV SCH (08:12)
[2023-10-08] MEDS: MIRALAX 17 GM POWD.PACK PO SCH (08:22)
[2023-10-08] MEDS: ALLOPURINOL 100 MG TABLET PO SCH (08:22)
[2023-10-08] MEDS: CLOPIDOGREL 75 MG TABLET PO SCH (08:22)
[2023-10-08] MEDS: LINAGLIPTIN 5 MG TABLET PO SCH (08:23)
[2023-10-08] MEDS: LISINOPRIL 10 MG TABLET PO SCH (08:23)
[2023-10-08] MEDS: ASPIRIN 81 MG TAB.CHEW PO SCH (08:23)
[2023-10-08] MEDS: SERTRALINE HCL 100 MG TABLET PO SCH (08:24)
[2023-10-08] MEDS: AZITHROMYCIN IV 500 MG in IV DEXTROSE 5% 250 ML IV SCH (08:24)
[2023-10-08] MEDS ORDERED: ALLOPURINOL 300 MG TABLET PO SCH ×2 (09:00)
[2023-10-08] MEDS ORDERED: Medication Not On Formulary EA (Rosuvastatin Calcium (Crestor) 1 TAB) PO SCH (09:00)
[2023-10-08] MEDS ORDERED: Medication Not On Formulary EA (Omeprazole 1 CAP) PO SCH (09:00)
[2023-10-08] MEDS ORDERED: Medication Not On Formulary EA (Linaclotide (Linzess) 145 MCG) PO SCH (09:00)
[2023-10-08] MEDS: DOCUSATE SODIUM 250 MG CAPSULE PO SCH (14:18)
[2023-10-08] MEDS: BISACODYL 10 MG SUPP.RECT RC PRN (14:18)
[2023-10-08] MEDS: LIPASE/PROTEASE/AMYLASE 4200 UNITS CAPSULE.DR PO SCH (14:29)
[2023-10-08] MEDS ORDERED: ALBUTEROL SULFATE 2.5 MG/3 ML NEBU ONE (19:54)
[2023-10-08] MEDS ORDERED: IPRATROPIUM BROMIDE 0.5 MG/2.5 ML NEBU ONE (19:54)
[2023-10-08] MEDS: TEMAZEPAM 15 MG CAPSULE PO PRN (22:02)
[2023-10-09] VITALS (11 sets, daily range): BP systolic 121–149; BP diastolic 62–87; TEMP 97.6–98; O2SAT 93–99
[2023-10-09] MEDS ORDERED: IPRATROPIUM BROMIDE 0.5 MG/2.5 ML NEBU ONE (00:42)
[2023-10-09] MEDS ORDERED: ALBUTEROL SULFATE 2.5 MG/3 ML NEBU ONE (00:42)
[2023-10-09 06:43] LABS: BASOPHILS % (AUTO) 0.1 % (0.0-2.0); HEMATOCRIT 30.5 % (36.7-47.1); HEMOGLOBIN 10.6 g/dL (12.5-16.3); LYMPHOCYTES # (AUTO) 0.7 K/uL (0.8-4.8); LYMPHOCYTES % (AUTO) 7.5 % (20.5-51.5); MEAN CORPUSCULAR HEMOGLOBIN 29.2 uug (23.8-33.4); MEAN CORPUSCULAR HGB CONC 35 g/dL (32.5-36.3); MEAN CORPUSCULAR VOLUME 84.1 fL (73.0-96.2); MONOCYTES # (AUTO) 0.6 K/uL (0.1-1.30); MONOCYTES % (AUTO) 6.6 % (0.0-11.0); NEUTROPHILS # (AUTO) 7.5 K/uL (1.8-8.9); NEUTROPHILS % (AUTO) 85.8 % (38.5-71.5); PLATELET COUNT (AUTO) 194 K/uL (152-348); RED BLOOD CELL COUNT(AUTO) 3.63 MIL/uL (4.06-5.63); RED CELL DISTRIBUTION WIDTH 15.6 % (12.1-16.2); WHITE BLOOD COUNT (AUTO) 8.8 K/uL (3.6-10.2)
[2023-10-09 06:46] LABS: CREATININE 0.9 mg/dL (0.6-1.3); POTASSIUM 4.4 mmol/L (3.5-5.1)
[2023-10-09 06:49] LABS: DIFFERENTIAL COMMENT 1
[2023-10-09] MEDS: BENZOCAINE/MENTH/CETYLPYRD LOZENGE MM PRN (10:29)
[2023-10-09] MEDS: FUROSEMIDE 20 MG/2 ML VIAL IV ONE (13:49)
[2023-10-09] MEDS: BISACODYL 10 MG SUPP.RECT RC ONE (13:49)
[2023-10-09] MEDS ORDERED: ALPRAZOLAM 0.25 MG TABLET PO PRN (14:45)
[2023-10-09] MEDS: LORAZEPAM 1 MG TABLET PO PRN (22:13)
[2023-10-10] VITALS (7 sets, daily range): BP systolic 113–142; BP diastolic 66–76; TEMP 97.5–97.8; O2SAT 93–98
[2023-10-10 06:43] LABS: CALCIUM 9.1 mg/dL (8.5-10.1); CREATININE 0.9 mg/dL (0.6-1.3); POTASSIUM 4.2 mmol/L (3.5-5.1)
[2023-10-10 06:48] LABS: HEMATOCRIT 29.7 % (36.7-47.1); HEMOGLOBIN 10.5 g/dL (12.5-16.3); LYMPHOCYTES # (AUTO) 0.7 K/uL (0.8-4.8); LYMPHOCYTES % (AUTO) 8.4 % (20.5-51.5); MEAN CORPUSCULAR HEMOGLOBIN 29.6 uug (23.8-33.4); MEAN CORPUSCULAR HGB CONC 36 g/dL (32.5-36.3); MEAN CORPUSCULAR VOLUME 83.4 fL (73.0-96.2); MONOCYTES # (AUTO) 0.6 K/uL (0.1-1.30); NEUTROPHILS # (AUTO) 6.6 K/uL (1.8-8.9); NEUTROPHILS % (AUTO) 83.6 % (38.5-71.5); PLATELET COUNT (AUTO) 215 K/uL (152-348); RED BLOOD CELL COUNT(AUTO) 3.56 MIL/uL (4.06-5.63); WHITE BLOOD COUNT (AUTO) 7.9 K/uL (3.6-10.2)
[2023-10-10 06:59] LABS: DIFFERENTIAL COMMENT 1
[2023-10-10] MEDS ORDERED: PANTOPRAZOLE SODIUM 40 MG TABLET.DR PO SCH (07:00)
[2023-10-10] MEDS: FUROSEMIDE 20 MG/2 ML VIAL IV SCH (08:58)
[2023-10-10] MEDS: HYDROCODONE/APAP 5-325MG TABLET PO PRN (13:01)
[2023-10-10] MEDS: ALBUTEROL SULFATE 2.5 MG/3 ML NEBU NEB PRN (13:22)
[2023-10-10] MEDS ORDERED: DOCU250C14 PO (18:47)
[2023-10-10] MEDS ORDERED: PANT40TA49 PO (18:47)
[2023-10-10] MEDS ORDERED: FURO10VI IV (18:47)
[2023-10-10] MEDS ORDERED: IPRA0.2S6 NEB (18:47)
[2023-10-10] MEDS ORDERED: CEFT1FRO2 IV (18:47)
[2023-10-10] MEDS ORDERED: ALBU2.5V7 NEB (18:47)
[2023-10-10] MEDS ORDERED: LINA5TAB PO (18:47)
[2023-10-10] MEDS ORDERED: methylPREDNISolone SOD SUCC IV (18:47)
[2023-10-10] MEDS ORDERED: TRAZ-252 PO (18:47)
[2023-10-10] MEDS ORDERED: AZIT500V8 IV (18:47)
[2023-10-10] MEDS ORDERED: LIPA1CAP27 PO (18:47)
[2023-10-10] MEDS ORDERED: ALBU1.25 NEB (18:47)
[2023-10-10] MEDS ORDERED: METO-356 PO (18:47)
[2023-10-10] MEDS ORDERED: Insulin Glargine,Hum SQ (18:47)
== END 2023-10-10 21:40 | disposition short-term general hospital (02) | DRG 193 ==
LOC: ER 02:55 → TELE3 05:01 → MEDSURG3 12:04 → TELE3 18:32 → MEDSURG3 10-08 14:12 → TELE3 10-10 08:17
PROVIDERS: ADMIT Nurse Practitioner Acute Care; ATTEND Nurse Practitioner Acute Care
DX: J15.9 Unspecified bacterial pneumonia (principal); I50.33 Acute on chronic diastolic (congestive) heart failure; J96.01 Acute respiratory failure with hypoxia; J44.1 Chronic obstructive pulmonary disease with (acute) exacerbation; E44.0 Moderate protein-calorie malnutrition; E87.20 Acidosis, unspecified; J44.0 Chronic obstructive pulmonary disease with (acute) lower respiratory infection; Z87.891 Personal history of nicotine dependence; I48.0 Paroxysmal atrial fibrillation; I27.20 Pulmonary hypertension, unspecified; Z85.51 Personal history of malignant neoplasm of bladder; E78.5 Hyperlipidemia, unspecified; E88.09 Other disorders of plasma-protein metabolism, not elsewhere classified; I34.0 Nonrheumatic mitral (valve) insufficiency; I25.10 Atherosclerotic heart disease of native coronary artery without angina pectoris; Z95.5 Presence of coronary angioplasty implant and graft; E11.42 Type 2 diabetes mellitus with diabetic polyneuropathy; Z79.84 Long term (current) use of oral hypoglycemic drugs; Z79.4 Long term (current) use of insulin; Z79.899 Other long term (current) drug therapy; Z79.01 Long term (current) use of anticoagulants; Z98.1 Arthrodesis status; Z95.818 Presence of other cardiac implants and grafts; Z86.73 Personal history of transient ischemic attack (TIA), and cerebral infarction without residual deficits
CPT/HCPCS: 36415; 71045; 83605; 83735; 84100; 84484; 85025; 87040; 93005; 93307; 94640; 94760; A4663; G0378; J0456; J0696; J1815; J1940; J2930; J3535; J3590; J7050; J8499